=== PATIENT | female | born 1950 | race Caucasian/White ===

== ENCOUNTER → 2017-07-24 | Outpatient (CLI) | payer OTHER ==
[~2017-07-24] MED LIST: NS 100 ML IV 100 ML IV ONE
[2017-07-24 08:53] LABS: CREATININE 0.73 mg/dL (0.55-1.02)
--- NOTE | 2017-07-24 10:39 | CT ---
CT CHEST WITH IV CONTRAST HISTORY: COPD. Pneumonia. Bronchitis. Comparison: None Technique: Multiple axial images of the chest were obtained from the thoracic inlet to the upper abdo men after the administration of IV contrast.Dose reduction techniques including Automated Exposure Co ntrol (AEC) and adjustment of mA and kV were utlized. Findings: The heart is normal in size. No pericardial effusion. No suspicious mediastinal or axillary lymph no ac. Although not optimized to detect pulmonary embolism, no large central pulmonary emboli are seen. Right upper lobe nodule with surrounding ground-glass on series 4, image 27 measuring 2.3 cm. Moderat e emphysema Airways are patent. No suspicious pulmonary nodules or masses. Limited images of the upper abdomen are unremarkable. No aggressive osseous lesions. IMPRESSION: 1. Large right upper lobe nodule that may represent focal infection in the correct clinical setting. Should be noted that malignancy may have a similar appearance and repeat imaging in 3 months after r esolution of acute symptoms would be recommended. Reported By:
== END | disposition home or self-care (01) | DRG 192 ==
LOC: RAD 08:07
PROVIDERS: ATTEND Nurse Practitioner Family
DX: J44.9 Chronic obstructive pulmonary disease, unspecified (principal); J18.0 Bronchopneumonia, unspecified organism; J20.9 Acute bronchitis, unspecified; R91.1 Solitary pulmonary nodule
CPT/HCPCS: 36415; 71260; 82565; 84520; A4222

== ENCOUNTER → 2017-09-07 | Outpatient (CLI) | payer OTHER ==
--- NOTE | 2017-09-07 16:00 | CT ---
CT CHEST WITHOUT IV CONTRAST HISTORY: Lung nodule follow-up Comparison: 07/24/2017 Technique: Multiple axial images of the chest were obtained from the thoracic inlet to the upper abdo men. Dose reduction techniques including Automated Exposure Control (AEC) and adjustment of mA and kV were utlized. Findings: The evaluation of the mediastinal structures is diminished without the use of IV contrast. The heart is normal in size. No pericardial effusion. No suspicious mediastinal or axillary lymph no ac. No focal consolidations, pleural effusions or pneumothorax. Airways are patent. Redemonstration of le ft upper lobe nodule best appreciated on sagittal series 7, image 67 measuring 1.9 x 1.3 cm, previous ly 1.9 x 1.3 cm. This nodule appears to have some sub solid components. Limited images of the upper abdomen are unremarkable. No aggressive osseous lesions. IMPRESSION: 1. Stable solid and sub solid right upper lobe nodule as above. Recommend correlation with more dist ant prior exams if available to confirm stability. Otherwise, CT at 6-12 months to confirm persistenc e, then CT every 2 years until 5 years. http://pubs.[facility].org/doi/abs/[email or web address] Reported By:
== END ==
LOC: RAD 13:57
PROVIDERS: ATTEND Internal Medicine Sleep Medicine
DX: R91.8 Other nonspecific abnormal finding of lung field (principal)
CPT/HCPCS: 71250

== ENCOUNTER 2017-11-26 21:55 | Inpatient (IN) | payer OTHER, MEDICARE ==
[2017-11-27] MEDS ORDERED: DUONEB 0.5 MG/3 MG ONE (02:43)
--- NOTE | 2017-11-27 02:43 | DR.GENAD ---
HPI - PCP Primary Care Physician: mini - Complaint/Symptoms Chief Complaint:: severe chest congestion. Self Treatment fo Chief Complaint: Patient has been taking Prednisone and one biaxin around noon and taken several nebulizer tx - Nurses notes reviewed Nurses Notes Review: Yes - Source History Provided: Patient, Family Member - Mode of Arrival Mode of Arrival: Ambulatory - Timing Onset of Chief Complaint: 11/23/17 Came on: Suddenly - Duration Duration: Constant Duration: Days PMH - PMH Past Medical History: No Past Surgical History: Yes Past Surgical History Comment: lung nodule removal 11-16-17 - Family History History of Family Medical Conditions: No - Social History Does patient currently use any type of tobacco product: No Have you used tobacco products in the last 12 months: No Type of Tobacco Use: None Does any household member use tobacco: No Alcohol Use: None Do you use any recreational Drugs:: No Lives With: Family Lives Where: Home - infectious screening In the last 2 months have you had wt loss of >10#?: NO Have you had fever, night sweats or hemotysis?: No Have you traveled outside the country in the last 6 months?: No Isolation: Standard ROS - Review of Systems Constitutional: Fever, Weakness, Fatigue. negative: Chills Eyes: negative: Eye Pain, Discharge ENTM: Nose Congestion, Throat Pain. negative: Ear Pain, Nose Pain, Nose Discharge Respiratoy: Productive Cough, Short of Breath, Wheezing. negative: Hemoptysis Cardiovascular: Chest Pain Gastrointestinal/Abdominal: No Symptoms Reported. negative: Abdominal Pain, Constipation, Diarrhea, Nausea, Vomiting Genitourinary: No Symptoms Reported. negative: Discharge, Dysuria, Frequency Neurological: Headache, Weakness, Dizziness Musculoskeletal: Back Pain, Muscle Pain, Chest wall Integumentary: negative: Change in Color, Rash, Juandice Hematologic/Lymphatic: Easy Bleeding Endocrine: No Symptoms Reported All Other Systems: Reviewed and Negative PE - Vital Signs Vitals: Temperature 100.1 F Pulse Rate 112 Respiratory Rate 22 Blood Pressure 140/78 O2 Sat by Pulse Oximetry 94 - General Limitations: No Limitations General Appearance: Alert - Head Head Exam: Normal Inspection - Eyes Eye exam: Normal Appearance - ENT ENT Exam: Normal External Ear Exam External Ear Exam: Normal External Inspection TM/Canal Exam: Bilateral Normal Nose Exam: Normal Nose Exam Mouth Exam: Normal Inspection Throat Exam: Normal Inspection - Neck Neck Exam: Normal Inspection - Chest Chest Inspection: Symmetric Chest Wall Rise - Respiratory Respiratory Exam: Accessory Muscle Use, Chest Wall Tenderness, Respiratory Distress Respiratory Exam: Bilateral Wheezing, Bilateral Rales, Bilateral Rhonchi, Upper Wheezing, Upper Rhonchi, Lower Wheezing, Lower Rales, Lower Rhonchi - Cardiovascular Cardiovascular Exam: Regular Rate, Normal Rhythm, Normal Heart Sounds - Abdominal Exam Abdominal Exam: Normal Bowel Sounds, Soft. negative: Tenderness - Extremities Extremities Exam: Normal Inspection - Back Back Exam: Normal Inspection - Neurologic Neurological Exam: Alert, Oriented X3 - Psychiatric Psychiatric Exam: Anxious - Skin Skin Exam: Normal Color MDM - Additional Information Additional Information Obtained From: Family - Differential Diagnosis Differential Diagnosis: PNEUMONIA, [place], CHEST WALL PAIN Course - Treatment Treatment: SEE ORDERS. - Education/Counseling Education/Counseling: Patient, Family, Education Educated On: Diagnosis ROR - Labs Reviewed Laboratory Results Reviewed?: Yes Result Diagrams: 11/27/17 03:00 11/27/17 03:00 Laboratory: WBC 14.0 X10^3/uL (3.6-10.0) H 11/27/17 03:00 RBC 5.10 X10^6/uL (3.5-5.4) 11/27/17 03:00 Hgb 15.9 g/dL (12.0-16.0) 11/27/17 03:00 Hct 45.4 % (36.0-47.0) 11/27/17 03:00 MCV 89.1 fL (80.0-100.0) 11/27/17 03:00 MCH 31.1 pg (27.0-34.0) 11/27/17 03:00 MCHC 34.9 g/dL (33.0-35.0) 11/27/17 03:00 RDW 12.6 % (11.6-16.5) 11/27/17 03:00 Plt Count 438 X10^3/uL (150.0-450.0) 11/27/17 03:00 MPV 8.0 fL (7.4-11.0) 11/27/17 03:00 Neut % 88.9 % (42.0-75.0) H 11/27/17 03:00 Lymph % 6.5 % (21.0-51.0) L 11/27/17 03:00 [place] % 4.6 % (0.0-13.0) 11/27/17 03:00 Eos % 0.0 % (0.9-2.9) L 11/27/17 03:00 Baso % 0 % (0.2-1.0) L 11/27/17 03:00 Neut # 12.4 x10^3/uL (2.2-4.8) H 11/27/17 03:00 Lymph # 0.9 X10^3/uL (1.3-2.9) L 11/27/17 03:00 [place] # 0.6 x10^3/uL (0.3-0.8) 11/27/17 03:00 Eos # 0.0 x10^3/uL (0.0-0.2) 11/27/17 03:00 Baso # 0.0 X10^3/uL (0.0-0.1) 11/27/17 03:00 Absolute Nucleated RBC 0.0 /100WBC 11/27/17 03:00 Sample Site Lbra 11/27/17 04:07 ABG pH 7.470 (7.35-7.45) H 11/27/17 04:07 ABG pCO2 40.0 mmHg (35.0-45.0) 11/27/17 04:07 ABG pO2 54.0 mmHg (80.0-100.0) L 11/27/17 04:07 ABG HCO3 29.1 mmol/L (22-26) H 11/27/17 04:07 ABG O2 Saturation 90.0 % (90-100) 11/27/17 04:07 ABG Base Excess 5.0 mmol/L (-2.0-2.0) H 11/27/17 04:07 Roderick Test Na 11/27/17 04:07 A-a Gradient 46.0 mmHg 11/27/17 04:07 FiO2 21.000 11/27/17 04:07 Blood Gas Comments Abiel abg well-mtf 11/27/17 04:07 Sodium 139 mmol/L (136-145) 11/27/17 03:00 Corrected Sodium 140 mmol/L (136-145) 11/27/17 03:00 Potassium 3.7 mmol/L (3.5-5.1) 11/27/17 03:00 Chloride 101 mmol/L (98-107) 11/27/17 03:00 Carbon Dioxide 27.2 mmol/L (21-32) 11/27/17 03:00 BUN 9 mg/dL (7-18) 11/27/17 03:00 Creatinine 0.63 mg/dL (0.55-1.02) 11/27/17 03:00 Est GFR (MDRD) Af Amer > 60 (>60) 11/27/17 03:00 Est GFR (MDRD) Non-Af > 60 (>60) 11/27/17 03:00 Glucose 129 mg/dL (65-99) H 11/27/17 03:00 Calcium 9.5 mg/dL (8.5-10.1) 11/27/17 03:00 Corrected Calcium TNP 11/27/17 03:00 Total Bilirubin 0.40 mg/dL (0.2-1.0) 11/27/17 03:00 AST 16 Units/L (15-37) 11/27/17 03:00 ALT 24 Units/L (12-78) 11/27/17 03:00 Alkaline Phosphatase 110 Units/L (46-116) 11/27/17 03:00 Creatine Kinase 55 Units/L (26-192) 11/27/17 03:00 CK-MB (CK-2) 1.2 ng/mL (0-4.0) 11/27/17 03:00 CK/CKMB % Calc 2.2 % (<4) 11/27/17 03:00 Troponin I < 0.02 ng/mL (0-1.5) 11/27/17 03:00 Total Protein 8.2 g/dL (6.4-8.2) 11/27/17 03:00 Albumin 3.8 g/dL (3.4-5.0) 11/27/17 03:00 Globulin 4.4 g/dL (2.5-4.5) 11/27/17 03:00 Albumin/Globulin Ratio 0.9 Ratio (1.1-2.1) L 11/27/17 03:00 Influenza Type A (PCR) Positive (NEGATIVE) A 11/27/17 02:05 Influenza Type B (PCR) Negative (NEGATIVE) 11/27/17 02:05 - XRAY XRAY Interpreted by: Radiologist - EKG Rhythm: NSR - Discharge Plan Condition: Stable - Follow ups/Referrals Follow ups/Referrals: CARLOS RODAS [Primary Care Provider] - 3 days - Instructions Instructions: Influenza, Adult, [id number]
[2017-11-27] MEDS ORDERED: SOLU-Medrol 125 MG VIAL ONE (02:46)
[2017-11-27] MEDS ORDERED: DUONEB 0.5 MG/3 MG NEB ONE (02:57)
[2017-11-27] MEDS ORDERED: SOLU-Medrol 125 MG VIAL IVP ONE (02:57)
[2017-11-27 03:17] LABS: BASOPHILS % (AUTO) 0 % (0.2-1.0); HEMATOCRIT 45.4 % (36.0-47.0); HEMOGLOBIN 15.9 g/dL (12.0-16.0); LYMPHOCYTES # (AUTO) 0.9 X10^3/uL (1.3-2.9); LYMPHOCYTES % (AUTO) 6.5 % (21.0-51.0); MEAN CORPUSCULAR HEMOGLOBIN 31.1 pg (27.0-34.0); MEAN CORPUSCULAR HGB CONC 34.9 g/dL (33.0-35.0); MEAN CORPUSCULAR VOLUME 89.1 fL (80.0-100.0); MONOCYTES # (AUTO) 0.6 x10^3/uL (0.3-0.8); MONOCYTES % (AUTO) 4.6 % (0.0-13.0); NEUTROPHILS # (AUTO) 12.4 x10^3/uL (2.2-4.8); NEUTROPHILS % (AUTO) 88.9 % (42.0-75.0); PLATELET COUNT 438 X10^3/uL (150.0-450.0); RED CELL DISTRIBUTION WIDTH 12.6 % (11.6-16.5)
[2017-11-27 03:29] LABS: BLOOD UREA NITROGEN 9 mg/dL (7-18); CALCIUM 9.5 mg/dL (8.5-10.1); CARBON DIOXIDE 27.2 mmol/L (21-32); CHLORIDE 101 mmol/L (98-107); COR NA(FOR HYPERGLY) 140 mmol/L (136-145); CREATININE 0.63 mg/dL (0.55-1.02); SODIUM 139 mmol/L (136-145); TROPONIN I < 0.02 ng/mL (0-1.5); eGFR BLACK RACES > 60 (>60); eGFR NON BLACK RACES > 60 (>60)
[2017-11-27 03:33] LABS: ALANINE AMINOTRANSFERASE 24 Units/L (12-78); ALBUMIN 3.8 g/dL (3.4-5.0); ALKALINE PHOSPHATASE 110 Units/L (46-116); ASPARTATE AMINO TRANSFERASE 16 Units/L (15-37); CKMB % 2.2 % (<4); CREATINE KINASE 55 Units/L (26-192); CREATINE KINASE MB 1.2 ng/mL (0-4.0); TOTAL PROTEIN 8.2 g/dL (6.4-8.2)
[2017-11-27] MEDS ORDERED: ROCEPHIN VIAL 1 GM ONE (04:08)
[2017-11-27] MEDS ORDERED: ROCEPHIN VIAL 1 GM 1 GM in NS 100 ML IV + SPIKE MINIBAG* 100 ML IV ONE (04:09)
--- NOTE | 2017-11-27 04:24 | RAD ---
Chest, two views Indication: Shortness of breath, congestion Comparison: 07/07/2016 Findings: Heart size is normal. Radiopaque sutures are present within the right upper lobe, suggestiv e for partial lobectomy. No focal consolidation, significant effusion or pneumothorax is identified. There is no acute osseous abnormality. Impression: No acute cardiopulmonary abnormality. Reported By:
[2017-11-27 04:26] LABS: ABG HCO3 29.1 mmol/L (22-26)
[2017-11-27] MEDS: TAMIFLU PO SCH ×3 (05:04→20:55)
[2017-11-27 05:45] LABS: LACTIC ACID 1.2 mmol/L (0.4-2.0)
[2017-11-27] MEDS: NS 1000 ML 1,000 ML IV SCH ×3 (08:57→18:51)
[2017-11-27] MEDS ORDERED: VIBRAMYCIN 100 MG in D5W 250 ML IV 250 ML IV SCH (09:00)
[2017-11-27 09:13] LABS: CKMB % 2.2 % (<4); CREATINE KINASE 51 Units/L (26-192); CREATINE KINASE MB 1.1 ng/mL (0-4.0); TROPONIN I < 0.02 ng/mL (0-1.5)
[2017-11-27] MEDS: LEVAQUIN PREMIX IV 750 MG 750 MG/150 ML BAG IV SCH (10:04)
[2017-11-27] MEDS: DUONEB 0.5 MG/3 MG NEB SCH ×4 (12:00→20:51)
--- NOTE | 2017-11-27 13:24 | DR.H&P ---
H&P - History & Physical for Day of: H&P Date: 11/27/17 - Chief Complaint Chief Complaint: cough, fever, sob - Allergies Allergies/Adverse Reactions: Allergies Allergy/AdvReac Type Severity Reaction Status Date / Time No Known Drug Allergies Allergy Verified 11/27/17 04:57 - History of Present Illness History of Present Illness: patient is a 67-year-old white female who was an ER admission after presenting with complaints of flulike illness for 2-3 days prior to admission. Patient states she became very tight in her chest felt like she could not get any breath. Patient was recently diagnosed with lung carcinoma and status post right lung surgery. Patient otherwise has a negative past medical history. Patient tested positive for influenza A in the ER was started on Tamiflu patient admitted for further evaluation of respiratory illness administering IV antibiotics as well as respiratory therapy. - Past Medical History Additional Medical History: lung cancer - Past Surgical History Additional Surgical History: right upper partial lung lobe removal - Family History Family Medical History: Coronary Artery Disease, Hypertension - Social History Does patient currently use any type of tobacco product: No Have you used tobacco products in the last 12 months: No Type of Tobacco Use: None Does any household member use tobacco: No Alcohol Use: None Drug Use: None - Medications Home Medications: Montelukast Sodium [Singulair Tab 10 mg] 10 mg PO HS 11/27/17 [History Confirmed 11/27/17] - Review of Systems Constitutional: Fever, Chills, Weakness Eyes: No Symptoms Reported ENT: No Symptoms Reported Respiratory: Cough, Shortness of Breath, Wheezing Cardiovascular: No Symptoms Reported Gastrointestinal: No Symptoms Reported Genitourinary: No Symptoms Reported Musculoskeletal: No Symptoms Reported Skin: No Symptoms Reported Neurological: No Symptoms Reported - Physical Exam Vital Signs: Temperature 98.1 F Pulse Rate [Left Brachial] 110 Pulse Rate 112 Respiratory Rate 22 Blood Pressure [Left Arm] 168/81 Blood Pressure 140/78 O2 Sat by Pulse Oximetry 93 Oriented: Normal Eyes: Normal Ear: Normal Nose: Normal Throat: Normal Respiratory: Diminished Throughout Cardiovascular: Tachycardia : Normal Auscultation: Bowel Sounds: Normal Palpation: Normal Tenderness: Normal Skin: Normal Musculoskeletal: Normal Psychiatric: Anxiety Affect: Anxious Speech Pattern: Clear, Appropriate - Assessment/Plan (1) Acute bronchitis Status: Acute Plan: admit, tamiflu, iv atbx, resp therapy and supplemental o2. blood and sputum cultures. am labs, resume home meds. contact precautions, gentle iv hydration (2) Influenza A Status: Acute (3) Carcinoma, lung Status: Acute
[2017-11-27 15:19] LABS: CKMB % 2.3 % (<4); CREATINE KINASE 52 Units/L (26-192); CREATINE KINASE MB 1.2 ng/mL (0-4.0); TROPONIN I < 0.02 ng/mL (0-1.5)
[2017-11-27] MEDS: SINGULAIR TAB 10 MG PO SCH (20:55)
[2017-11-28] MEDS: DUONEB 0.5 MG/3 MG NEB SCH ×6 (01:07→20:11)
[2017-11-28] MEDS: NS 1000 ML 1,000 ML IV SCH ×3 (01:45→17:28)
[2017-11-28 06:11] LABS: BASOPHILS % (AUTO) 0.1 % (0.2-1.0); EOSINOPHILS % (AUTO) 0.1 % (0.9-2.9); HEMATOCRIT 39.3 % (36.0-47.0); HEMOGLOBIN 13.7 g/dL (12.0-16.0); LYMPHOCYTES # (AUTO) 1.8 X10^3/uL (1.3-2.9); LYMPHOCYTES % (AUTO) 15.7 % (21.0-51.0); MEAN CORPUSCULAR HGB CONC 34.8 g/dL (33.0-35.0); MEAN CORPUSCULAR VOLUME 89.1 fL (80.0-100.0); MEAN PLATELET VOLUME 7.9 fL (7.4-11.0); MONOCYTES # (AUTO) 1.2 x10^3/uL (0.3-0.8); MONOCYTES % (AUTO) 10.3 % (0.0-13.0); NEUTROPHILS # (AUTO) 8.4 x10^3/uL (2.2-4.8); NEUTROPHILS % (AUTO) 73.8 % (42.0-75.0); PLATELET COUNT 328 X10^3/uL (150.0-450.0); RED BLOOD COUNT 4.42 X10^6/uL (3.5-5.4); RED CELL DISTRIBUTION WIDTH 12.7 % (11.6-16.5); WHITE BLOOD COUNT 11.3 X10^3/uL (3.6-10.0)
[2017-11-28 06:37] LABS: ALANINE AMINOTRANSFERASE 14 Units/L (12-78); ALBUMIN 2.8 g/dL (3.4-5.0); ALKALINE PHOSPHATASE 82 Units/L (46-116); ASPARTATE AMINO TRANSFERASE 17 Units/L (15-37); BLOOD UREA NITROGEN 12 mg/dL (7-18); CALCIUM 8.4 mg/dL (8.5-10.1); CHLORIDE 106 mmol/L (98-107); COR CA(FOR HYPOALB) 9.4 mg/dL (8.5-10.1); MAGNESIUM 1.9 mg/dL (1.7-2.9); SODIUM 141 mmol/L (136-145); TOTAL PROTEIN 6.2 g/dL (6.4-8.2); eGFR BLACK RACES > 60 (>60); eGFR NON BLACK RACES > 60 (>60)
[2017-11-28] MEDS ORDERED: POTASSIUM CHL 60 MEQ/NS 0.45% 500 ML IV PRN (07:05)
[2017-11-28] MEDS ORDERED: MAG-OX TAB PO PRN (07:05)
[2017-11-28] MEDS ORDERED: K-LYTE EFFERVESCENT PO PRN (07:05)
[2017-11-28] MEDS ORDERED: MAGNESIUM SULFATE 1 GM/100 mL PREMIX 1 GM/100 ML BAG IV PRN (07:05)
[2017-11-28] MEDS ORDERED: POTASSIUM CHLORIDE LIQ 20 MEQ UDC PO PRN (07:05)
[2017-11-28] MEDS ORDERED: POTASSIUM CHL 40 MEQ/NS 0.45% 500 ML IV PRN (07:05)
[2017-11-28] MEDS ORDERED: K-RIDER 10 MEQ/NS 100 ML 10 MEQ/100 ML BAG IV PRN (07:05)
[2017-11-28] MEDS: SOLU-Medrol 40 MG VIAL IVP SCH ×2 (09:07→17:28)
[2017-11-28] MEDS: TAMIFLU PO SCH ×2 (09:07→20:04)
[2017-11-28] MEDS: LEVAQUIN PREMIX IV 750 MG 750 MG/150 ML BAG IV SCH (09:07)
[2017-11-28] MEDS ORDERED: TUSSIONEX PENNKINETIC SUSP PO PRN (13:16)
--- NOTE | 2017-11-28 13:20 | PCM.PROG ---
Progress Note - Progress Note for Day of Date: 11/28/17 - Subjective Subjective: 67-year-old white female admitted 1 day ago with influenza and bronchitis. Patient has been receiving IV antibiotics as well as respiratory therapy and IV steroids. Patient does have some improvement this morning. She states she feels a little bit better. Patient has diffuse rhonchi on exam with scant productive cough. Patient denies any nausea or vomiting this morning. Plan to add Pulmicort, Robitussin-DM continue to encourage by mouth intake of water, pulmonary toileting and repeat a.m. labs and chest x-ray. - Past Medical Family Social History Past Med/Fam/Surg Hx: No changes since H&P Allergies: Allergies No Known Drug Allergies Allergy (Verified 11/27/17 04:57) - Review of Systems ROS: No change since H&P - Vital Signs and I&O's Vital Signs: Temperature 98.3 F Pulse Rate [Left Brachial] 92 Pulse Rate 93 Respiratory Rate 20 Blood Pressure [Left Arm] 141/84 Blood Pressure 140/78 O2 Sat by Pulse Oximetry 96 Intake and Output: Intake & Output 11/26/17 11/27/17 11/28/17 11/29/17 11:59 11:59 11:59 11:59 Intake Total 6180 Balance 6180 - Physical Exam Oriented: Normal Eyes: Normal Ear: Normal Nose: Normal Throat: Normal Respiratory: Rhonchi Cardiovascular: Tachycardia : Normal Auscultation: Bowel Sounds: Normal Tenderness: Normal Skin: Normal Musculoskeletal: Normal Psychiatric: Anxiety Affect: Anxious Speech Pattern: Clear, Appropriate - Laboratory and Diagnostics Result Diagrams: 11/28/17 05:30 11/28/17 05:30 Labs: Laboratory WBC 11.3 X10^3/uL (3.6-10.0) H 11/28/17 05:30 RBC 4.42 X10^6/uL (3.5-5.4) 11/28/17 05:30 Hgb 13.7 g/dL (12.0-16.0) D 11/28/17 05:30 Hct 39.3 % (36.0-47.0) 11/28/17 05:30 MCV 89.1 fL (80.0-100.0) 11/28/17 05:30 MCH 31.0 pg (27.0-34.0) 11/28/17 05:30 MCHC 34.8 g/dL (33.0-35.0) 11/28/17 05:30 RDW 12.7 % (11.6-16.5) 11/28/17 05:30 Plt Count 328 X10^3/uL (150.0-450.0) 11/28/17 05:30 MPV 7.9 fL (7.4-11.0) 11/28/17 05:30 Neut % 73.8 % (42.0-75.0) 11/28/17 05:30 Lymph % 15.7 % (21.0-51.0) L 11/28/17 05:30 [place] % 10.3 % (0.0-13.0) 11/28/17 05:30 Eos % 0.1 % (0.9-2.9) L 11/28/17 05:30 Baso % 0.1 % (0.2-1.0) L 11/28/17 05:30 Neut # 8.4 x10^3/uL (2.2-4.8) H 11/28/17 05:30 Lymph # 1.8 X10^3/uL (1.3-2.9) 11/28/17 05:30 [place] # 1.2 x10^3/uL (0.3-0.8) H 11/28/17 05:30 Eos # 0.0 x10^3/uL (0.0-0.2) 11/28/17 05:30 Baso # 0.0 X10^3/uL (0.0-0.1) 11/28/17 05:30 Absolute Nucleated RBC 0.0 /100WBC 11/28/17 05:30 Sample Site Lbra 11/27/17 04:07 ABG pH 7.470 (7.35-7.45) H 11/27/17 04:07 ABG pCO2 40.0 mmHg (35.0-45.0) 11/27/17 04:07 ABG pO2 54.0 mmHg (80.0-100.0) L 11/27/17 04:07 ABG HCO3 29.1 mmol/L (22-26) H 11/27/17 04:07 ABG O2 Saturation 90.0 % (90-100) 11/27/17 04:07 ABG Base Excess 5.0 mmol/L (-2.0-2.0) H 11/27/17 04:07 Roderick Test Na 11/27/17 04:07 A-a Gradient 46.0 mmHg 11/27/17 04:07 FiO2 21.000 11/27/17 04:07 Blood Gas Comments Abiel abg well-mtf 11/27/17 04:07 Sodium 141 mmol/L (136-145) 11/28/17 05:30 Corrected Sodium TNP 11/28/17 05:30 Potassium 3.3 mmol/L (3.5-5.1) L 11/28/17 05:30 Chloride 106 mmol/L (98-107) 11/28/17 05:30 Carbon Dioxide 28.0 mmol/L (21-32) 11/28/17 05:30 BUN 12 mg/dL (7-18) 11/28/17 05:30 Creatinine 0.50 mg/dL (0.55-1.02) L 11/28/17 05:30 Est GFR (MDRD) Af Amer > 60 (>60) 11/28/17 05:30 Est GFR (MDRD) Non-Af > 60 (>60) 11/28/17 05:30 Glucose 81 mg/dL (65-99) 11/28/17 05:30 Lactic Acid 1.2 mmol/L (0.4-2.0) 11/27/17 05:20 Calcium 8.4 mg/dL (8.5-10.1) L 11/28/17 05:30 Corrected Calcium 9.4 mg/dL (8.5-10.1) 11/28/17 05:30 Magnesium 1.9 mg/dL (1.7-2.9) 11/28/17 05:30 Total Bilirubin 0.20 mg/dL (0.2-1.0) 11/28/17 05:30 AST 17 Units/L (15-37) 11/28/17 05:30 ALT 14 Units/L (12-78) 11/28/17 05:30 Alkaline Phosphatase 82 Units/L (46-116) 11/28/17 05:30 Creatine Kinase 52 Units/L (26-192) 11/27/17 14:50 CK-MB (CK-2) 1.2 ng/mL (0-4.0) 11/27/17 14:50 CK/CKMB % Calc 2.3 % (<4) 11/27/17 14:50 Troponin I < 0.02 ng/mL (0-1.5) 11/27/17 14:50 C-Reactive Protein 13.00 mg/L (0-3.0) H 11/27/17 05:20 Total Protein 6.2 g/dL (6.4-8.2) L 11/28/17 05:30 Albumin 2.8 g/dL (3.4-5.0) L 11/28/17 05:30 Globulin 3.4 g/dL (2.5-4.5) 11/28/17 05:30 Albumin/Globulin Ratio 0.8 Ratio (1.1-2.1) L 11/28/17 05:30 Influenza Type A (PCR) Positive (NEGATIVE) A 11/27/17 02:05 Influenza Type B (PCR) Negative (NEGATIVE) 11/27/17 02:05 - Plan (1) Acute bronchitis Status: Acute Plan: tamiflu, iv atbx, resp therapy and supplemental o2. blood and sputum cultures. Plan to add Pulmicort, Robitussin-DM continue to encourage by mouth intake of water, pulmonary toileting and repeat a.m. labs and chest x-ray. contact precautions, gentle iv hydration (2) Influenza A Status: Acute (3) Carcinoma, lung Status: Acute
[2017-11-28] MEDS: ROBITUSSIN DM PO SCH ×2 (17:28→20:06)
[2017-11-28] MEDS: SINGULAIR TAB 10 MG PO SCH (20:04)
[2017-11-28] MEDS: PULMICORT NEB TX 0.5 MG NEB SCH (20:12)
[2017-11-29] MEDS: NS 1000 ML 1,000 ML IV SCH ×3 (01:27→17:17)
[2017-11-29] MEDS: SOLU-Medrol 40 MG VIAL IVP SCH ×3 (01:34→17:17)
[2017-11-29] MEDS: DUONEB 0.5 MG/3 MG NEB SCH ×6 (01:53→21:09)
[2017-11-29 05:40] LABS: BASOPHILS % (AUTO) 0.1 % (0.2-1.0); HEMATOCRIT 40.7 % (36.0-47.0); HEMOGLOBIN 14.1 g/dL (12.0-16.0); LYMPHOCYTES # (AUTO) 0.8 X10^3/uL (1.3-2.9); LYMPHOCYTES % (AUTO) 10.4 % (21.0-51.0); MEAN CORPUSCULAR HEMOGLOBIN 31.1 pg (27.0-34.0); MEAN CORPUSCULAR HGB CONC 34.7 g/dL (33.0-35.0); MEAN CORPUSCULAR VOLUME 89.5 fL (80.0-100.0); MEAN PLATELET VOLUME 7.7 fL (7.4-11.0); MONOCYTES # (AUTO) 0.2 x10^3/uL (0.3-0.8); MONOCYTES % (AUTO) 3.2 % (0.0-13.0); NEUTROPHILS # (AUTO) 6.6 x10^3/uL (2.2-4.8); NEUTROPHILS % (AUTO) 86.3 % (42.0-75.0); PLATELET COUNT 313 X10^3/uL (150.0-450.0); RED BLOOD COUNT 4.55 X10^6/uL (3.5-5.4); RED CELL DISTRIBUTION WIDTH 12.7 % (11.6-16.5); WHITE BLOOD COUNT 7.6 X10^3/uL (3.6-10.0)
[2017-11-29 05:52] LABS: ALANINE AMINOTRANSFERASE 20 Units/L (12-78); ALBUMIN 2.9 g/dL (3.4-5.0); ALKALINE PHOSPHATASE 91 Units/L (46-116); ASPARTATE AMINO TRANSFERASE 14 Units/L (15-37); BLOOD UREA NITROGEN 8 mg/dL (7-18); CALCIUM 8.8 mg/dL (8.5-10.1); CHLORIDE 103 mmol/L (98-107); COR CA(FOR HYPOALB) 9.7 mg/dL (8.5-10.1); COR NA(FOR HYPERGLY) 139 mmol/L (136-145); CREATININE 0.41 mg/dL (0.55-1.02); SODIUM 138 mmol/L (136-145); TOTAL PROTEIN 6.5 g/dL (6.4-8.2); eGFR BLACK RACES > 60 (>60); eGFR NON BLACK RACES > 60 (>60)
[2017-11-29 08:07] VITALS: BMI 22.4
--- NOTE | 2017-11-29 08:19 | RAD ---
HISTORY: Shortness of breath, congestion Study: Single-view of the chest Comparison: November 27, 2017 Findings: The patient is slightly rotated. Interstitial changes and mild bronchial thickening are again noted s imilar to prior exam. Otherwise no evidence of focal consolidation is identified. Mild blunting of th e left costophrenic angle is again noted suggesting pleural thickening and/or small effusion similar to prior study. IMPRESSION: Interstitial changes and mild bronchial wall thickening with mild blunting of the left costophrenic a ngle. No overall significant change is appreciated. Reported By:
[2017-11-29] MEDS: PULMICORT NEB TX 0.5 MG NEB SCH ×2 (08:59→21:09)
[2017-11-29] MEDS: LEVAQUIN PREMIX IV 750 MG 750 MG/150 ML BAG IV SCH (09:41)
[2017-11-29] MEDS: ROBITUSSIN DM PO SCH ×4 (09:41→21:09)
[2017-11-29] MEDS: TAMIFLU PO SCH ×2 (09:42→21:09)
--- NOTE | 2017-11-29 12:52 | PCM.PROG ---
Progress Note - Progress Note for Day of Date: 11/29/17 - Subjective Subjective: 67-year-old white female admitted 1 day ago with influenza and bronchitis. Patient has been receiving IV antibiotics as well as respiratory therapy and IV steroids. Patient does have some improvement this morning. She states she feels a little bit better. Patient has diffuse rhonchi on exam with scant productive cough. Patient denies any nausea or vomiting this morning. Continue Pulmicort, Robitussin-DM continue to encourage by mouth intake of water , pulmonary toileting and repeat a.m. labs. smart vest and mucomyst - Past Medical Family Social History Past Med/Fam/Surg Hx: No changes since H&P Allergies: Allergies No Known Drug Allergies Allergy (Verified 11/27/17 04:57) - Review of Systems ROS: No change since H&P - Vital Signs and I&O's Vital Signs: Temperature 97.7 F Pulse Rate [Left Brachial] 117 Pulse Rate 98 Respiratory Rate 20 Blood Pressure [Left Arm] 145/86 Blood Pressure 140/78 O2 Sat by Pulse Oximetry 94 Intake and Output: Intake & Output 11/27/17 11/28/17 11/29/17 11/30/17 11:59 11:59 11:59 11:59 Intake Total 6180 6020 Balance 6180 6020 - Physical Exam Oriented: Normal Eyes: Normal Ear: Normal Nose: Normal Throat: Normal Respiratory: Rhonchi Cardiovascular: Tachycardia : Normal Auscultation: Bowel Sounds: Normal Tenderness: Normal Skin: Normal Musculoskeletal: Normal Psychiatric: Anxiety Affect: Anxious Speech Pattern: Clear, Appropriate - Laboratory and Diagnostics Result Diagrams: 11/29/17 05:15 11/29/17 05:15 Labs: 11/27/17 03:00 Blood Blood Culture - Preliminary 11/27/17 02:45 Blood Blood Culture - Preliminary Laboratory WBC 7.6 X10^3/uL (3.6-10.0) 11/29/17 05:15 RBC 4.55 X10^6/uL (3.5-5.4) 11/29/17 05:15 Hgb 14.1 g/dL (12.0-16.0) 11/29/17 05:15 Hct 40.7 % (36.0-47.0) 11/29/17 05:15 MCV 89.5 fL (80.0-100.0) 11/29/17 05:15 MCH 31.1 pg (27.0-34.0) 11/29/17 05:15 MCHC 34.7 g/dL (33.0-35.0) 11/29/17 05:15 RDW 12.7 % (11.6-16.5) 11/29/17 05:15 Plt Count 313 X10^3/uL (150.0-450.0) 11/29/17 05:15 MPV 7.7 fL (7.4-11.0) 11/29/17 05:15 Neut % 86.3 % (42.0-75.0) H 11/29/17 05:15 Lymph % 10.4 % (21.0-51.0) L 11/29/17 05:15 [place] % 3.2 % (0.0-13.0) 11/29/17 05:15 Eos % 0.0 % (0.9-2.9) L 11/29/17 05:15 Baso % 0.1 % (0.2-1.0) L 11/29/17 05:15 Neut # 6.6 x10^3/uL (2.2-4.8) H 11/29/17 05:15 Lymph # 0.8 X10^3/uL (1.3-2.9) L 11/29/17 05:15 [place] # 0.2 x10^3/uL (0.3-0.8) L 11/29/17 05:15 Eos # 0.0 x10^3/uL (0.0-0.2) 11/29/17 05:15 Baso # 0.0 X10^3/uL (0.0-0.1) 11/29/17 05:15 Absolute Nucleated RBC 0.0 /100WBC 11/29/17 05:15 Sample Site Lbra 11/27/17 04:07 ABG pH 7.470 (7.35-7.45) H 11/27/17 04:07 ABG pCO2 40.0 mmHg (35.0-45.0) 11/27/17 04:07 ABG pO2 54.0 mmHg (80.0-100.0) L 11/27/17 04:07 ABG HCO3 29.1 mmol/L (22-26) H 11/27/17 04:07 ABG O2 Saturation 90.0 % (90-100) 11/27/17 04:07 ABG Base Excess 5.0 mmol/L (-2.0-2.0) H 11/27/17 04:07 Roderick Test Na 11/27/17 04:07 A-a Gradient 46.0 mmHg 11/27/17 04:07 FiO2 21.000 11/27/17 04:07 Blood Gas Comments Abiel abg well-mtf 11/27/17 04:07 Sodium 138 mmol/L (136-145) 11/29/17 05:15 Corrected Sodium 139 mmol/L (136-145) 11/29/17 05:15 Potassium 3.5 mmol/L (3.5-5.1) 11/29/17 05:15 Chloride 103 mmol/L (98-107) 11/29/17 05:15 Carbon Dioxide 27.0 mmol/L (21-32) 11/29/17 05:15 BUN 8 mg/dL (7-18) 11/29/17 05:15 Creatinine 0.41 mg/dL (0.55-1.02) L 11/29/17 05:15 Est GFR (MDRD) Af Amer > 60 (>60) 11/29/17 05:15 Est GFR (MDRD) Non-Af > 60 (>60) 11/29/17 05:15 Glucose 151 mg/dL (65-99) H 11/29/17 05:15 Lactic Acid 1.2 mmol/L (0.4-2.0) 11/27/17 05:20 Calcium 8.8 mg/dL (8.5-10.1) 11/29/17 05:15 Corrected Calcium 9.7 mg/dL (8.5-10.1) 11/29/17 05:15 Magnesium 1.9 mg/dL (1.7-2.9) 11/28/17 05:30 Total Bilirubin 0.40 mg/dL (0.2-1.0) 11/29/17 05:15 AST 14 Units/L (15-37) L 11/29/17 05:15 ALT 20 Units/L (12-78) 11/29/17 05:15 Alkaline Phosphatase 91 Units/L (46-116) 11/29/17 05:15 Creatine Kinase 52 Units/L (26-192) 11/27/17 14:50 CK-MB (CK-2) 1.2 ng/mL (0-4.0) 11/27/17 14:50 CK/CKMB % Calc 2.3 % (<4) 11/27/17 14:50 Troponin I < 0.02 ng/mL (0-1.5) 11/27/17 14:50 C-Reactive Protein 13.00 mg/L (0-3.0) H 11/27/17 05:20 Total Protein 6.5 g/dL (6.4-8.2) 11/29/17 05:15 Albumin 2.9 g/dL (3.4-5.0) L 11/29/17 05:15 Globulin 3.6 g/dL (2.5-4.5) 11/29/17 05:15 Albumin/Globulin Ratio 0.8 Ratio (1.1-2.1) L 11/29/17 05:15 Influenza Type A (PCR) Positive (NEGATIVE) A 11/27/17 02:05 Influenza Type B (PCR) Negative (NEGATIVE) 11/27/17 02:05 - Plan (1) Acute bronchitis Status: Acute Plan: tamiflu, iv atbx, resp therapy and supplemental o2. blood and sputum cultures. Continue Pulmicort, Robitussin-DM continue to encourage by mouth intake of water, pulmonary toileting and repeat a.m. labs and chest x-ray. contact precautions, gentle iv hydration (2) Influenza A Status: Acute (3) Carcinoma, lung Status: Acute
[2017-11-29] MEDS: ECOTRIN TAB 325 MG PO SCH (14:47)
[2017-11-29] MEDS: SINGULAIR TAB 10 MG PO SCH (21:09)
[2017-11-30] MEDS: DUONEB 0.5 MG/3 MG NEB SCH ×3 (01:24→09:33)
[2017-11-30] MEDS: NS 1000 ML 1,000 ML IV SCH ×3 (01:46→09:50)
[2017-11-30] MEDS: SOLU-Medrol 40 MG VIAL IVP SCH ×3 (01:47→16:35)
[2017-11-30 05:43] LABS: BASOPHILS % (AUTO) 0.1 % (0.2-1.0); HEMATOCRIT 39.9 % (36.0-47.0); HEMOGLOBIN 13.8 g/dL (12.0-16.0); LYMPHOCYTES # (AUTO) 0.8 X10^3/uL (1.3-2.9); LYMPHOCYTES % (AUTO) 8.8 % (21.0-51.0); MEAN CORPUSCULAR HEMOGLOBIN 30.9 pg (27.0-34.0); MEAN CORPUSCULAR HGB CONC 34.6 g/dL (33.0-35.0); MEAN CORPUSCULAR VOLUME 89.3 fL (80.0-100.0); MEAN PLATELET VOLUME 7.9 fL (7.4-11.0); MONOCYTES # (AUTO) 0.5 x10^3/uL (0.3-0.8); MONOCYTES % (AUTO) 5.6 % (0.0-13.0); NEUTROPHILS # (AUTO) 7.9 x10^3/uL (2.2-4.8); NEUTROPHILS % (AUTO) 85.5 % (42.0-75.0); PLATELET COUNT 302 X10^3/uL (150.0-450.0); RED BLOOD COUNT 4.47 X10^6/uL (3.5-5.4); RED CELL DISTRIBUTION WIDTH 12.8 % (11.6-16.5); WHITE BLOOD COUNT 9.3 X10^3/uL (3.6-10.0)
[2017-11-30 06:11] LABS: ALANINE AMINOTRANSFERASE 18 Units/L (12-78); ALBUMIN 2.8 g/dL (3.4-5.0); ALKALINE PHOSPHATASE 85 Units/L (46-116); ASPARTATE AMINO TRANSFERASE 11 Units/L (15-37); BLOOD UREA NITROGEN 8 mg/dL (7-18); CALCIUM 8.6 mg/dL (8.5-10.1); CARBON DIOXIDE 27.9 mmol/L (21-32); CHLORIDE 105 mmol/L (98-107); COR CA(FOR HYPOALB) 9.6 mg/dL (8.5-10.1); COR NA(FOR HYPERGLY) 142 mmol/L (136-145); CREATININE 0.45 mg/dL (0.55-1.02); SODIUM 141 mmol/L (136-145); TOTAL PROTEIN 6.2 g/dL (6.4-8.2); eGFR BLACK RACES > 60 (>60); eGFR NON BLACK RACES > 60 (>60)
[2017-11-30] MEDS: PULMICORT NEB TX 0.5 MG NEB SCH (09:33)
[2017-11-30] MEDS: TAMIFLU PO SCH (09:42)
[2017-11-30] MEDS: LEVAQUIN PREMIX IV 750 MG 750 MG/150 ML BAG IV SCH (09:42)
[2017-11-30] MEDS: ECOTRIN TAB 325 MG PO SCH (09:42)
[2017-11-30] MEDS: ROBITUSSIN DM PO SCH ×3 (09:43→16:34)
[2017-11-30 16:17] VITALS: BP 172/87
== END 2017-11-30 16:40 | disposition home or self-care (01) | DRG 194 ==
LOC: ER 21:55 → MED/SURG 11-27 08:25
PROVIDERS: ADMIT Internal Medicine; ATTEND Internal Medicine
DX: J10.1 Influenza due to other identified influenza virus with other respiratory manifestations (principal); J44.1 Chronic obstructive pulmonary disease with (acute) exacerbation; C34.90 Malignant neoplasm of unspecified part of unspecified bronchus or lung; J20.8 Acute bronchitis due to other specified organisms; R06.02 Shortness of breath; R94.31 Abnormal electrocardiogram [ECG] [EKG]; Z90.2 Acquired absence of lung [part of]; R09.02 Hypoxemia
CPT/HCPCS: 36415; 36600; 71045; 71046; 80053; 82550; 82553; 82803; 83605; 83735; 84132; 84484; 85025; 86140; 87040; 87502; 93005; 93010; 94640; 94760; 96374; 96375; 99284; A4222; G9035; J0696; J1956; J2920; J2930; J3490; J7620; J7626

== ENCOUNTER 2019-02-08 10:41 | Inpatient (IN) ==
[2019-02-08 10:57] VITALS: BMI 22.6
[2019-02-08] MEDS ORDERED: DUONEB 0.5 MG/3 MG ONE ×2 (11:01→12:04)
[2019-02-08] MEDS ORDERED: DUONEB 0.5 MG/3 MG NEB ONE ×2 (11:01→12:03)
--- NOTE | 2019-02-08 11:06 | DR.URIAD ---
HPI Time Seen Time Seen by Provider: 02/08/19 11:06 PCP Primary Care Physician: seema pink HPI Comment HPI Comment: PATIENT IS 68YR OLD FEMALE IN ED WITH SOB AND COUGH THAT IS GETTING WORSE. NO FEVER. Complaint Chief Complaint Doctors Comments: SOB AND COUGHING TIMES ONE DAY. Chief Complaint:: pt stated she started getting short of breath yesterday and coughing. Reviewed Nurses Notes Reviewed: Yes Source History Provided: Patient Mode of Arrival Mode of Arrival: Ambulatory Timing Onset of Chief Complaint: 02/07/19 Context Recent Treated Infections: None History of Respiratory: Asthma Quality Quality of Cough: Productive and Yellow Rhinorrhea: Clear Shortness of Breath: Moderate Associated Signs and Symptoms Other Signs and Symptoms: Cough, Shortness of Breath, URI and Wheeze Other History Other History: ASTHMA PMH PMH Past Medical History: Yes Past Medical History: Asthma and COPD Past Surgical History: Yes Surgical History: Other Past Surgical History Comment: upper right lung removed Family History History of Family Medical Conditions: No Family Medical History: Coronary Artery Disease and Hypertension Social History Does patient currently use any type of tobacco product: No Have you used tobacco products in the last 12 months: No Type of Tobacco Use: None Does any household member use tobacco: No Alcohol Use: Rarely Do you use any recreational Drugs:: No Lives With: Family Lives Where: Home infectious screening In the last 2 months have you had wt loss of >10#?: NO Have you had fever, night sweats or hemotysis?: No Have you traveled outside the country in the last 6 months?: No Isolation: Standard ROS Review of Systems Constitutional: No Symptoms Reported Eyes: No Symptoms Reported ENTM: Nose Congestion Respiratoy: Productive Cough, Short of Breath and Wheezing Cardiovascular: No Symptoms Reported Gastrointestinal/Abdominal: No Symptoms Reported Genitourinary: No Symptoms Reported Neurological: No Symptoms Reported Musculoskeletal: No Symptoms Reported Integumentary: No Symptoms Reported Hematologic/Lymphatic: No Symptoms Reported Endocrine: No Symptoms Reported Psychiatric: No Symptoms Reported All Other Systems: Reviewed and Negative PE Vital Signs Vitals: Temperature 97.8 F Pulse Rate [Left Brachial] 99 Pulse Rate 87 Respiratory Rate 20 Blood Pressure [Right Arm] 134/75 Blood Pressure [Left Arm] 112/58 Blood Pressure 131/79 O2 Sat by Pulse Oximetry 97 General Limitations: No Limitations General Appearance: Alert and In No Apparent Distress Head Head Exam: Normal Inspection Eyes Eye exam: Normal Appearance, PERRL and EOMI; negative Scleral Icterus and Conjunctival Injection ENT ENT Exam: Normal External Ear Exam External Ear Exam: Normal External Inspection TM/Canal Exam: Bilateral: Bulging Nose Exam: Normal Nose Exam Mouth Exam: Normal Inspection Throat Exam: Tonsillar Erythema; negative Tonsillomegaly and Tonsillar Exudate Neck Neck Exam: Normal Inspection; negative Tenderness, Meningismus and Lymphadenopathy Chest Chest Inspection: Normal Inspection Respiratory Respiratory Exam: Bilateral: Wheezing, Bilateral: Rales and Bilateral: Rhonchi, Right: Rales, Upper: Rales and Lower: Wheezing and Lower: Rhonchi Cardiovascular Cardiovascular Exam: Regular Rate and Normal Rhythm Abdominal Exam Abdominal Exam: Normal Inspection, Normal Bowel Sounds and Soft Extremeties Extremities Exam: Normal Inspection Back Back Exam: Normal Inspection Neurologic Neurological Exam: Alert and Oriented X3; negative Motor Sensory Deficit Psychiatric Psychiatric Exam: Normal Affect and Normal Mood Skin Skin Exam: Warm, Dry, Intact and Normal Color MDM Differential Diagnosis Differential Diagnosis: Otitis media, Streptococcal pharyngitis, Viral pharyngitis, Pneumonia, Sinsusitis and URI COURSE Treatment Treatment: SEE ORDERS. NEB TREATMENT AND IV SOLUMEDROL AND IV ANTIBIOTIC IN ED. Consultation Consultation Comments: DR. RODAS WILL ADMIT PATIENT. Education/Counseling Education/Counseling: Patient Educated On: Diagnosis ROR Labs Reviewed Laboratory Results Reviewed?: Yes Result Diagrams: 02/11/19 04:53 02/11/19 04:53 Laboratory: 02/08/19 11:25 Blood Blood Culture - Preliminary 02/08/19 11:20 Blood Blood Culture - Preliminary 02/08/19 11:15 Sputum - Expectorated Sputum Sputum Culture - Final 02/08/19 11:15 Sputum - Expectorated Sputum - Final WBC 13.5 X10^3/uL (3.6-10.0) H 02/11/19 04:53 RBC 4.43 X10^6/uL (3.5-5.4) 02/11/19 04:53 Hgb 13.7 g/dL (12.0-16.0) 02/11/19 04:53 Hct 39.6 % (36.0-47.0) 02/11/19 04:53 MCV 89.4 fL (80.0-100.0) 02/11/19 04:53 MCH 31.0 pg (27.0-34.0) 02/11/19 04:53 MCHC 34.6 g/dL (33.0-35.0) 02/11/19 04:53 RDW 13.1 % (11.6-16.5) 02/11/19 04:53 Plt Count 187 X10^3/uL (150.0-450.0) 02/11/19 04:53 Plt Count Comment Adequate (ADEQUATE) 02/10/19 04:26 MPV 8.6 fL (7.4-11.0) 02/11/19 04:53 Neut % (Auto) 88.6 % (42.0-75.0) H 02/11/19 04:53 Lymph % (Auto) 7.8 % (21.0-51.0) L 02/11/19 04:53 [place] % (Auto) 3.6 % (0.0-13.0) 02/11/19 04:53 Eos % (Auto) 0.0 % (0.9-2.9) L 02/11/19 04:53 Baso % (Auto) 0 % (0.2-1.0) L 02/11/19 04:53 Neut # (Auto) 11.9 x10^3/uL (2.2-4.8) H 02/11/19 04:53 Lymph # (Auto) 1.1 X10^3/uL (1.3-2.9) L 02/11/19 04:53 [place] # (Auto) 0.5 x10^3/uL (0.3-0.8) 02/11/19 04:53 Eos # (Auto) 0.0 x10^3/uL (0.0-0.2) 02/11/19 04:53 Baso # (Auto) 0.0 X10^3/uL (0.0-0.1) 02/11/19 04:53 Absolute Nucleated RBC 0.0 /100WBC 02/11/19 04:53 Total Counted 100 02/10/19 04:26 Neutrophils % (Manual) 93 % (39-76) H 02/10/19 04:26 Band Neutrophils % 2 % (0-10) 02/08/19 11:25 Lymphocytes % (Manual) 6 % (13-43) L 02/10/19 04:26 Monocytes % (Manual) 1 % (4-9) L 02/10/19 04:26 Eosinophils % (Manual) 29 % (0-6) H 02/08/19 11:25 Plt Morphology Comment Normal (NORMAL) 02/10/19 04:26 RBC Morphology Normal (NORMAL) 02/10/19 04:26 D-Dimer < 100 ng/mL (0-400) 02/08/19 11:25 Sodium 146 mmol/L (136-145) H 02/11/19 04:53 Corrected Sodium 147 mmol/L (136-145) H 02/11/19 04:53 Potassium 3.4 mmol/L (3.5-5.1) L 02/11/19 04:53 Chloride 109 mmol/L (98-107) H 02/11/19 04:53 Carbon Dioxide 24.3 mmol/L (21-32) 02/11/19 04:53 BUN 9 mg/dL (7-18) 02/11/19 04:53 Creatinine 0.54 mg/dL (0.55-1.02) L 02/11/19 04:53 Est GFR (MDRD) Af Amer > 60 (>60) 02/11/19 04:53 Est GFR (MDRD) Non-Af > 60 (>60) 02/11/19 04:53 Glucose 126 mg/dL (65-99) H 02/11/19 04:53 Lactic Acid 0.9 mmol/L (0.4-2.0) 02/08/19 11:25 Calcium 8.7 mg/dL (8.5-10.1) 02/11/19 04:53 Corrected Calcium 9.3 mg/dL (8.5-10.1) 02/11/19 04:53 Magnesium 2.0 mg/dL (1.7-2.9) 02/09/19 04:20 Total Bilirubin 0.40 mg/dL (0.2-1.0) 02/11/19 04:53 AST 12 Units/L (15-37) L 02/11/19 04:53 ALT 18 Units/L (12-78) 02/11/19 04:53 Alkaline Phosphatase 57 Units/L (46-116) 02/11/19 04:53 Creatine Kinase 62 Units/L (26-192) 02/08/19 21:55 CK-MB (CK-2) 1.0 ng/mL (0-4.0) 02/08/19 21:55 CK/CKMB % Calc 1.6 % (<4) 02/08/19 21:55 Troponin I < 0.02 ng/mL (0-1.5) 02/08/19 21:55 Total Protein 6.2 g/dL (6.4-8.2) L 02/11/19 04:53 Albumin 3.2 g/dL (3.4-5.0) L 02/11/19 04:53 Globulin 3.0 g/dL (2.5-4.5) 02/11/19 04:53 Albumin/Globulin Ratio 1.1 Ratio (1.1-2.1) 02/11/19 04:53 Specimen Type Clean catch urine 02/08/19 17:35 Urine Color Yellow (YELLOW) 02/08/19 17:35 Urine Appearance Clear (CLEAR) 02/08/19 17:35 Urine pH 7.0 (5.0 - 8.0) 02/08/19 17:35 Ur Specific [place] 1.005 (1.000-1.030) 02/08/19 17:35 Urine Protein Negative (NEGATIVE) 02/08/19 17:35 Urine Glucose (UA) Negative (NEGATIVE) 02/08/19 17:35 Urine Ketones 1+ (NEGATIVE) 02/08/19 17:35 Urine Occult Blood Negative (NEGATIVE) 02/08/19 17:35 Urine Nitrite Negative (NEGATIVE) 02/08/19 17:35 Urine Bilirubin Negative (NEGATIVE) 02/08/19 17:35 Urine Urobilinogen Normal (NORMAL) 02/08/19 17:35 Ur Leukocyte Esterase Negative (NEGATIVE) 02/08/19 17:35 XRAY XRAY Interpreted by: Radiologist XRAY Findings: REPORT ON RECORD NOTED AND DISCUSS WITH PATIENT. EKG Rate: 92 [place]: Normal Rhythm: NSR Block: None Hypertrophy: LAE ST: Normal Diagnosis Discharge Problem: COPD exacerbation
[2019-02-08] MEDS ORDERED: SOLU-Medrol 125 MG VIAL IVP ONE (11:21)
[2019-02-08] MEDS ORDERED: SOLU-Medrol 125 MG VIAL ONE (11:24)
--- NOTE | 2019-02-08 11:27 | RAD ---
Exam: Chest, single History: 68-year-old female with cough and shortness of breath. Previous history of lung cancer. Comparison: Previous chest radiograph from 05/29/2018. Findings: Heart size and pulmonary vasculature are normal. Hyperinflation consistent with COPD is again noted. Chronic interstitial changes are present at the right base. Radiopaque sutures are again seen in the right upper lobe consistent with previous partial lobectomy. A 1.4 cm nodular density is identified just above the right costophrenic angle. This appears to represent a change when compared to the previous exam. It does not appear to represent a nipple shadow. No significant effusion is seen on either side. Visualized bony thorax is unremarkable. Impression: 1. COPD with chronic interstitial scarring at the right base 2. Postoperative changes related to previous right upper lobectomy for lung cancer are again noted. 3. 1.4 cm nodule is seen just above the right costophrenic angle. This appears to represent a change since the previous exam. Further evaluation with chest CT is warranted. Reported By:
[2019-02-08 11:39] LABS: BASOPHILS # (AUTO) 0.1 X10^3/uL (0.0-0.1); BASOPHILS % (AUTO) 1.2 % (0.2-1.0); EOSINOPHILS # (AUTO) 1.5 x10^3/uL (0.0-0.2); EOSINOPHILS % (AUTO) 20.6 % (0.9-2.9); HEMATOCRIT 48.5 % (36.0-47.0); HEMOGLOBIN 16.9 g/dL (12.0-16.0); LYMPHOCYTES # (AUTO) 1.8 X10^3/uL (1.3-2.9); MEAN CORPUSCULAR HEMOGLOBIN 30.9 pg (27.0-34.0); MEAN CORPUSCULAR HGB CONC 34.8 g/dL (33.0-35.0); MEAN CORPUSCULAR VOLUME 88.8 fL (80.0-100.0); MEAN PLATELET VOLUME 8.1 fL (7.4-11.0); MONOCYTES # (AUTO) 0.6 x10^3/uL (0.3-0.8); MONOCYTES % (AUTO) 8.3 % (0.0-13.0); NEUTROPHILS # (AUTO) 3.1 x10^3/uL (2.2-4.8); NEUTROPHILS % (AUTO) 43.9 % (42.0-75.0); PLATELET COUNT 226 X10^3/uL (150.0-450.0); RED BLOOD COUNT 5.46 X10^6/uL (3.5-5.4); RED CELL DISTRIBUTION WIDTH 12.9 % (11.6-16.5); WHITE BLOOD COUNT 7.1 X10^3/uL (3.6-10.0)
[2019-02-08 11:52] LABS: ALANINE AMINOTRANSFERASE 18 Units/L (12-78); ALBUMIN 3.7 g/dL (3.4-5.0); ALKALINE PHOSPHATASE 80 Units/L (46-116); ASPARTATE AMINO TRANSFERASE 16 Units/L (15-37); BAND NEUTROPHILS % 2 % (0-10); BLOOD UREA NITROGEN 8 mg/dL (7-18); CALCIUM 9.1 mg/dL (8.5-10.1); CARBON DIOXIDE 24.7 mmol/L (21-32); CHLORIDE 106 mmol/L (98-107); CREATININE 0.72 mg/dL (0.55-1.02); SODIUM 142 mmol/L (136-145); TOTAL PROTEIN 7.2 g/dL (6.4-8.2); eGFR NON BLACK RACES > 60 (>60)
[2019-02-08 11:53] LABS: PLATELET MORPHOLOGY COMMENT NORMAL (NORMAL)
[2019-02-08 11:57] LABS: LACTIC ACID 0.9 mmol/L (0.4-2.0)
[2019-02-08] MEDS ORDERED: NS 100 ML IV 100 ML ONE (12:22)
--- NOTE | 2019-02-08 13:26 | CT ---
CT CHEST WITH IV CONTRAST HISTORY: Shortness of breath and cough. History of lung cancer. Comparison: 09/07/2017 Technique: Multiple axial images of the chest were obtained from the thoracic inlet to the upper abdomen after the administration of IV contrast.Dose reduction techniques including Automated Exposure Control (AEC) and adjustment of mA and kV were utlized. Findings: The heart is normal in size. No pericardial effusion. No suspicious mediastinal or axillary lymph nodes. Although not optimized to detect pulmonary embolism, no large central pulmonary emboli are seen. No focal consolidations, pleural effusions or pneumothorax. Status post right upper lobe wedge resection. Airways are patent. Focal ground-glass can be seen in the perihilar region of the left upper lobe on series 5, image 37 which is new from prior. Limited images of the upper abdomen are unremarkable. No aggressive osseous lesions. IMPRESSION: 1. Focal ground-glass in the left upper lobe may represent acute infection in the correct clinical setting. 2. Status post wedge resection of the right upper lobe without definite evidence of recurrent lung cancer. Reported By:
[2019-02-08] MEDS ORDERED: NS 1000 ML 1,000 ML IV SCH (15:00)
[2019-02-08] MEDS: ROCEPHIN VIAL 1 GRAM IVP SCH (15:17)
[2019-02-08] MEDS: NS 1000 ML 1,000 ML IV SCH (15:17)
[2019-02-08] MEDS: ZITHROMAX INJ 500 MG VIAL 500 MG in NS 250 ML IV 250 ML IV SCH (15:17)
[2019-02-08] MEDS: DUONEB 0.5 MG/3 MG NEB SCH ×2 (16:12→20:41)
[2019-02-08 16:25] LABS: CREATINE KINASE 68 Units/L (26-192); CREATINE KINASE MB < 1.0 ng/mL (0-4.0); TROPONIN I < 0.02 ng/mL (0-1.5)
[2019-02-08 16:35] LABS: CKMB % 1.5 % (<4)
[2019-02-08 17:42] LABS: BILIRUBIN,URINE NEGATIVE (NEGATIVE); BLOOD/HEMOGLOBIN,URINE NEGATIVE (NEGATIVE); GLUCOSE, URINE NEGATIVE (NEGATIVE); KETONES,URINE 1+ (NEGATIVE); LEUKOCYTE ESTERASE ,URINE NEGATIVE (NEGATIVE); NITRITES,URINE NEGATIVE (NEGATIVE); PROTEIN,URINE NEGATIVE (NEGATIVE); UROBILINOGEN,URINE NORMAL (NORMAL)
[2019-02-08 17:44] LABS: APPEARANCE,URINE CLEAR (CLEAR); COLOR,URINE YELLOW (YELLOW)
[2019-02-08] MEDS: BROVANA IN SCH (20:29)
[2019-02-08] MEDS: PULMICORT NEB TX 0.5 MG NEB SCH (20:41)
[2019-02-08] MEDS: SOLU-Medrol 40 MG VIAL IVP SCH (21:03)
[2019-02-08 22:25] LABS: CKMB % 1.6 % (<4); CREATINE KINASE 62 Units/L (26-192); TROPONIN I < 0.02 ng/mL (0-1.5)
[2019-02-08] MEDS: ZyrTEC TAB 10 MG PO SCH (23:55)
[2019-02-08] MEDS: SINGULAIR TAB 10 MG PO SCH (23:55)
[2019-02-09] MEDS: DUONEB 0.5 MG/3 MG NEB SCH ×6 (00:21→20:50)
[2019-02-09] MEDS: NS 1000 ML 1,000 ML IV SCH ×2 (03:52→16:56)
[2019-02-09] MEDS: SOLU-Medrol 40 MG VIAL IVP SCH ×3 (05:04→21:50)
[2019-02-09 05:25] LABS: BASOPHILS % (AUTO) 0 % (0.2-1.0); HEMATOCRIT 43.1 % (36.0-47.0); LYMPHOCYTES # (AUTO) 0.9 X10^3/uL (1.3-2.9); LYMPHOCYTES % (AUTO) 9.4 % (21.0-51.0); MEAN CORPUSCULAR HEMOGLOBIN 30.8 pg (27.0-34.0); MEAN CORPUSCULAR HGB CONC 34.7 g/dL (33.0-35.0); MEAN CORPUSCULAR VOLUME 88.7 fL (80.0-100.0); MEAN PLATELET VOLUME 8.4 fL (7.4-11.0); MONOCYTES # (AUTO) 0.2 x10^3/uL (0.3-0.8); MONOCYTES % (AUTO) 1.8 % (0.0-13.0); NEUTROPHILS # (AUTO) 8.2 x10^3/uL (2.2-4.8); NEUTROPHILS % (AUTO) 88.8 % (42.0-75.0); PLATELET COUNT 223 X10^3/uL (150.0-450.0); RED BLOOD COUNT 4.86 X10^6/uL (3.5-5.4); WHITE BLOOD COUNT 9.2 X10^3/uL (3.6-10.0)
[2019-02-09 05:43] LABS: ALANINE AMINOTRANSFERASE 17 Units/L (12-78); ALBUMIN 3.3 g/dL (3.4-5.0); ALKALINE PHOSPHATASE 68 Units/L (46-116); ASPARTATE AMINO TRANSFERASE 13 Units/L (15-37); BLOOD UREA NITROGEN 8 mg/dL (7-18); CARBON DIOXIDE 24.5 mmol/L (21-32); CHLORIDE 105 mmol/L (98-107); COR CA(FOR HYPOALB) 9.6 mg/dL (8.5-10.1); COR NA(FOR HYPERGLY) 142 mmol/L (136-145); CREATININE 0.65 mg/dL (0.55-1.02); SODIUM 140 mmol/L (136-145); TOTAL PROTEIN 6.7 g/dL (6.4-8.2); eGFR NON BLACK RACES > 60 (>60)
[2019-02-09] MEDS: ROCEPHIN VIAL 1 GRAM IVP SCH (08:45)
[2019-02-09] MEDS: ZITHROMAX INJ 500 MG VIAL 500 MG in NS 250 ML IV 250 ML IV SCH (08:48)
[2019-02-09] MEDS: BROVANA IN SCH ×2 (09:44→21:09)
[2019-02-09] MEDS: PULMICORT NEB TX 0.5 MG NEB SCH ×2 (09:45→20:51)
[2019-02-09] MEDS: ZyrTEC TAB 10 MG PO SCH (20:29)
[2019-02-09] MEDS: SINGULAIR TAB 10 MG PO SCH (20:29)
[2019-02-09] MEDS ORDERED: K-RIDER 10 MEQ/NS 100 ML 10 MEQ/100 ML BAG IV PRN (22:54)
[2019-02-09] MEDS ORDERED: POTASSIUM CHL 60 MEQ/NS 0.45% 500 ML IV PRN (22:54)
[2019-02-09] MEDS ORDERED: MICRO K EXTEN CAP 10 MEQ PO PRN (22:54)
[2019-02-09] MEDS ORDERED: KLOR-CON PO PRN (22:54)
[2019-02-09] MEDS ORDERED: POTASSIUM CHL 40 MEQ/NS 0.45% 500 ML IV PRN (22:54)
[2019-02-09] MEDS ORDERED: POTASSIUM CHLORIDE LIQ 20 MEQ UDC PO PRN (22:54)
[2019-02-09] MEDS: K-DUR TAB 20 MEQ PO PRN (23:25)
[2019-02-10] MEDS: DUONEB 0.5 MG/3 MG NEB SCH ×6 (00:20→21:05)
[2019-02-10 05:00] LABS: BASOPHILS % (AUTO) 0.1 % (0.2-1.0); HEMATOCRIT 39.3 % (36.0-47.0); HEMOGLOBIN 13.5 g/dL (12.0-16.0); LYMPHOCYTES # (AUTO) 0.9 X10^3/uL (1.3-2.9); LYMPHOCYTES % (AUTO) 5.7 % (21.0-51.0); MEAN CORPUSCULAR HEMOGLOBIN 30.8 pg (27.0-34.0); MEAN CORPUSCULAR HGB CONC 34.4 g/dL (33.0-35.0); MEAN CORPUSCULAR VOLUME 89.4 fL (80.0-100.0); MEAN PLATELET VOLUME 8.5 fL (7.4-11.0); MONOCYTES # (AUTO) 0.4 x10^3/uL (0.3-0.8); MONOCYTES % (AUTO) 2.8 % (0.0-13.0); NEUTROPHILS # (AUTO) 13.8 x10^3/uL (2.2-4.8); NEUTROPHILS % (AUTO) 91.4 % (42.0-75.0); PLATELET COUNT 198 X10^3/uL (150.0-450.0); RED CELL DISTRIBUTION WIDTH 13.2 % (11.6-16.5); WHITE BLOOD COUNT 15.1 X10^3/uL (3.6-10.0)
[2019-02-10 05:13] LABS: ALANINE AMINOTRANSFERASE 16 Units/L (12-78); ALBUMIN 3.1 g/dL (3.4-5.0); ALKALINE PHOSPHATASE 57 Units/L (46-116); ASPARTATE AMINO TRANSFERASE 10 Units/L (15-37); BLOOD UREA NITROGEN 9 mg/dL (7-18); CALCIUM 8.6 mg/dL (8.5-10.1); CARBON DIOXIDE 23.9 mmol/L (21-32); CHLORIDE 110 mmol/L (98-107); COR CA(FOR HYPOALB) 9.3 mg/dL (8.5-10.1); COR NA(FOR HYPERGLY) 145 mmol/L (136-145); CREATININE 0.63 mg/dL (0.55-1.02); SODIUM 144 mmol/L (136-145); TOTAL PROTEIN 6.1 g/dL (6.4-8.2); eGFR NON BLACK RACES > 60 (>60)
[2019-02-10] MEDS: K-DUR TAB 20 MEQ PO PRN (05:23)
[2019-02-10] MEDS: SOLU-Medrol 40 MG VIAL IVP SCH ×3 (05:23→21:02)
[2019-02-10] MEDS: NS 1000 ML 1,000 ML IV SCH ×3 (05:24→21:02)
[2019-02-10 05:49] LABS: PLATELET MORPHOLOGY COMMENT NORMAL (NORMAL)
[2019-02-10] MEDS: ROCEPHIN VIAL 1 GRAM IVP SCH (08:20)
[2019-02-10] MEDS: ZITHROMAX INJ 500 MG VIAL 500 MG in NS 250 ML IV 250 ML IV SCH (08:21)
[2019-02-10] MEDS: BROVANA IN SCH ×3 (09:12→21:23)
[2019-02-10] MEDS: PULMICORT NEB TX 0.5 MG NEB SCH ×2 (09:24→21:05)
--- NOTE | 2019-02-10 13:26 | RAD ---
Examination: Chest, PA and lateral views History: Lung cancer, COPD Comparison 02/08/2019 Findings: Continued normal heart size with pulmonary hyperaeration and diffuse chronic interstitial thickening. Postsurgical findings right upper lung. No definite mass, nodule, or pleural fluid. Impression: Redemonstration of findings consistent with COPD and previous right pulmonary surgery. Reported By:
[2019-02-10] MEDS: SINGULAIR TAB 10 MG PO SCH (20:10)
[2019-02-10] MEDS: ZyrTEC TAB 10 MG PO SCH (20:10)
[2019-02-11] MEDS: NS 1000 ML 1,000 ML IV SCH (01:00)
[2019-02-11] MEDS: DUONEB 0.5 MG/3 MG NEB SCH ×6 (01:16→20:26)
[2019-02-11] MEDS: SOLU-Medrol 40 MG VIAL IVP SCH (05:23)
[2019-02-11 05:27] LABS: BASOPHILS % (AUTO) 0 % (0.2-1.0); HEMATOCRIT 39.6 % (36.0-47.0); HEMOGLOBIN 13.7 g/dL (12.0-16.0); LYMPHOCYTES # (AUTO) 1.1 X10^3/uL (1.3-2.9); LYMPHOCYTES % (AUTO) 7.8 % (21.0-51.0); MEAN CORPUSCULAR HGB CONC 34.6 g/dL (33.0-35.0); MEAN CORPUSCULAR VOLUME 89.4 fL (80.0-100.0); MEAN PLATELET VOLUME 8.6 fL (7.4-11.0); MONOCYTES # (AUTO) 0.5 x10^3/uL (0.3-0.8); MONOCYTES % (AUTO) 3.6 % (0.0-13.0); NEUTROPHILS # (AUTO) 11.9 x10^3/uL (2.2-4.8); NEUTROPHILS % (AUTO) 88.6 % (42.0-75.0); PLATELET COUNT 187 X10^3/uL (150.0-450.0); RED BLOOD COUNT 4.43 X10^6/uL (3.5-5.4); RED CELL DISTRIBUTION WIDTH 13.1 % (11.6-16.5); WHITE BLOOD COUNT 13.5 X10^3/uL (3.6-10.0)
[2019-02-11 05:32] LABS: ALANINE AMINOTRANSFERASE 18 Units/L (12-78); ALBUMIN 3.2 g/dL (3.4-5.0); ALKALINE PHOSPHATASE 57 Units/L (46-116); ASPARTATE AMINO TRANSFERASE 12 Units/L (15-37); BLOOD UREA NITROGEN 9 mg/dL (7-18); CALCIUM 8.7 mg/dL (8.5-10.1); CARBON DIOXIDE 24.3 mmol/L (21-32); CHLORIDE 109 mmol/L (98-107); COR CA(FOR HYPOALB) 9.3 mg/dL (8.5-10.1); COR NA(FOR HYPERGLY) 147 mmol/L (136-145); CREATININE 0.54 mg/dL (0.55-1.02); SODIUM 146 mmol/L (136-145); TOTAL PROTEIN 6.2 g/dL (6.4-8.2); eGFR NON BLACK RACES > 60 (>60)
[2019-02-11] MEDS: BROVANA IN SCH ×2 (08:46→20:25)
[2019-02-11] MEDS: PULMICORT NEB TX 0.5 MG NEB SCH ×2 (08:46→20:26)
[2019-02-11] MEDS: ROCEPHIN VIAL 1 GRAM IVP SCH (09:25)
[2019-02-11] MEDS: ZITHROMAX INJ 500 MG VIAL 500 MG in NS 250 ML IV 250 ML IV SCH (09:25)
[2019-02-11] MEDS ORDERED: TUSSIONEX PENNKINETIC SUSP PO PRN (09:42)
[2019-02-11] MEDS ORDERED: NS 1/2 1000 ML IV 1,000 ML ONE (11:55)
[2019-02-11] MEDS: ROBITUSSIN DM PO SCH ×4 (11:57→20:32)
[2019-02-11] MEDS: NS 1/2 1000 ML IV 1,000 ML IV SCH ×2 (11:57→11:58)
[2019-02-11] MEDS ORDERED: PROTONIX INJ 40 MG VIAL IVP SCH (18:00)
--- NOTE | 2019-02-11 18:02 | PCM.PROG ---
Progress Note - Progress Note for Day of Date of Exam: 02/11/19 - Subjective Subjective: 68 WF ADMITTED ON 02/08 WITH COPD EXACERBATION AND PNEUMONIA. PT HAS RECEIVED IV SOLU MEDROL AND IV ATBX THERAPY WITH RESP THERAPY. PT CO NOT RESTING WELL. PT STATES SHE IS WAKING UP SOB AND IT SCARES HER. PT STATES HER CHEST IT TIGHT DURING THE NIGHT. K+3.4 THIS AM, NA 146. IV FLUIDS CHANGES TO 1/2 NS AT 50, POTASSIUM REPLACEMENT, STOPPED STEROIDS AND ADDED ANTITUSSIVE MEDICATION. - Past Medical Family Social History Past Med/Fam/Surg Hx: No changes since H&P Allergies: Allergies No Known Drug Allergies Allergy (Verified 02/08/19 10:52) - Review of Systems ROS: No change since H&P - Vital Signs and I&O's Vital Signs: Temperature 97.8 F Pulse Rate [Left Brachial] 99 Pulse Rate 87 Respiratory Rate 20 Blood Pressure [Right Arm] 134/75 Blood Pressure [Left Arm] 112/58 Blood Pressure 131/79 O2 Sat by Pulse Oximetry 97 Intake and Output: Intake & Output 02/09/19 02/10/19 02/11/19 02/12/19 11:59 11:59 11:59 11:59 Intake Total 2330 / 2330 3439 / 3439 5525 / 5525 3965 / 3965 Balance 2330 / 2330 3439 / 3439 5525 / 5525 3965 / 3965 - Physical Exam Oriented: Normal Eyes: Normal Ear: Normal Nose: Normal Throat: Normal Respiratory: Diminished, Wheezes, Rhonchi Cardiovascular: Normal : Normal Auscultation: Bowel Sounds: Normal Palpation: Normal Tenderness: Normal Skin: Normal Musculoskeletal: Normal Psychiatric: Anxiety Affect: Anxious Speech Pattern: Clear, Appropriate - Laboratory and Diagnostics Result Diagrams: 02/11/19 04:53 02/11/19 04:53 Labs: 02/08/19 11:25 Blood Blood Culture - Preliminary 02/08/19 11:20 Blood Blood Culture - Preliminary 02/08/19 11:15 Sputum - Expectorated Sputum Sputum Culture - Final 02/08/19 11:15 Sputum - Expectorated Sputum - Final Laboratory WBC 13.5 X10^3/uL (3.6-10.0) H 02/11/19 04:53 RBC 4.43 X10^6/uL (3.5-5.4) 02/11/19 04:53 Hgb 13.7 g/dL (12.0-16.0) 02/11/19 04:53 Hct 39.6 % (36.0-47.0) 02/11/19 04:53 MCV 89.4 fL (80.0-100.0) 02/11/19 04:53 MCH 31.0 pg (27.0-34.0) 02/11/19 04:53 MCHC 34.6 g/dL (33.0-35.0) 02/11/19 04:53 RDW 13.1 % (11.6-16.5) 02/11/19 04:53 Plt Count 187 X10^3/uL (150.0-450.0) 02/11/19 04:53 Plt Count Comment Adequate (ADEQUATE) 02/10/19 04:26 MPV 8.6 fL (7.4-11.0) 02/11/19 04:53 Neut % (Auto) 88.6 % (42.0-75.0) H 02/11/19 04:53 Lymph % (Auto) 7.8 % (21.0-51.0) L 02/11/19 04:53 [place] % (Auto) 3.6 % (0.0-13.0) 02/11/19 04:53 Eos % (Auto) 0.0 % (0.9-2.9) L 02/11/19 04:53 Baso % (Auto) 0 % (0.2-1.0) L 02/11/19 04:53 Neut # (Auto) 11.9 x10^3/uL (2.2-4.8) H 02/11/19 04:53 Lymph # (Auto) 1.1 X10^3/uL (1.3-2.9) L 02/11/19 04:53 [place] # (Auto) 0.5 x10^3/uL (0.3-0.8) 02/11/19 04:53 Eos # (Auto) 0.0 x10^3/uL (0.0-0.2) 02/11/19 04:53 Baso # (Auto) 0.0 X10^3/uL (0.0-0.1) 02/11/19 04:53 Absolute Nucleated RBC 0.0 /100WBC 02/11/19 04:53 Total Counted 100 02/10/19 04:26 Neutrophils % (Manual) 93 % (39-76) H 02/10/19 04:26 Band Neutrophils % 2 % (0-10) 02/08/19 11:25 Lymphocytes % (Manual) 6 % (13-43) L 02/10/19 04:26 Monocytes % (Manual) 1 % (4-9) L 02/10/19 04:26 Eosinophils % (Manual) 29 % (0-6) H 02/08/19 11:25 Plt Morphology Comment Normal (NORMAL) 02/10/19 04:26 RBC Morphology Normal (NORMAL) 02/10/19 04:26 D-Dimer < 100 ng/mL (0-400) 02/08/19 11:25 Sodium 146 mmol/L (136-145) H 02/11/19 04:53 Corrected Sodium 147 mmol/L (136-145) H 02/11/19 04:53 Potassium 3.4 mmol/L (3.5-5.1) L 02/11/19 04:53 Chloride 109 mmol/L (98-107) H 02/11/19 04:53 Carbon Dioxide 24.3 mmol/L (21-32) 02/11/19 04:53 BUN 9 mg/dL (7-18) 02/11/19 04:53 Creatinine 0.54 mg/dL (0.55-1.02) L 02/11/19 04:53 Est GFR (MDRD) Af Amer > 60 (>60) 02/11/19 04:53 Est GFR (MDRD) Non-Af > 60 (>60) 02/11/19 04:53 Glucose 126 mg/dL (65-99) H 02/11/19 04:53 Lactic Acid 0.9 mmol/L (0.4-2.0) 02/08/19 11:25 Calcium 8.7 mg/dL (8.5-10.1) 02/11/19 04:53 Corrected Calcium 9.3 mg/dL (8.5-10.1) 02/11/19 04:53 Magnesium 2.0 mg/dL (1.7-2.9) 02/09/19 04:20 Total Bilirubin 0.40 mg/dL (0.2-1.0) 02/11/19 04:53 AST 12 Units/L (15-37) L 02/11/19 04:53 ALT 18 Units/L (12-78) 02/11/19 04:53 Alkaline Phosphatase 57 Units/L (46-116) 02/11/19 04:53 Creatine Kinase 62 Units/L (26-192) 02/08/19 21:55 CK-MB (CK-2) 1.0 ng/mL (0-4.0) 02/08/19 21:55 CK/CKMB % Calc 1.6 % (<4) 02/08/19 21:55 Troponin I < 0.02 ng/mL (0-1.5) 02/08/19 21:55 Total Protein 6.2 g/dL (6.4-8.2) L 02/11/19 04:53 Albumin 3.2 g/dL (3.4-5.0) L 02/11/19 04:53 Globulin 3.0 g/dL (2.5-4.5) 02/11/19 04:53 Albumin/Globulin Ratio 1.1 Ratio (1.1-2.1) 02/11/19 04:53 Specimen Type Clean catch urine 02/08/19 17:35 Urine Color Yellow (YELLOW) 02/08/19 17:35 Urine Appearance Clear (CLEAR) 02/08/19 17:35 Urine pH 7.0 (5.0 - 8.0) 02/08/19 17:35 Ur Specific [place] 1.005 (1.000-1.030) 02/08/19 17:35 Urine Protein Negative (NEGATIVE) 02/08/19 17:35 Urine Glucose (UA) Negative (NEGATIVE) 02/08/19 17:35 Urine Ketones 1+ (NEGATIVE) 02/08/19 17:35 Urine Occult Blood Negative (NEGATIVE) 02/08/19 17:35 Urine Nitrite Negative (NEGATIVE) 02/08/19 17:35 Urine Bilirubin Negative (NEGATIVE) 02/08/19 17:35 Urine Urobilinogen Normal (NORMAL) 02/08/19 17:35 Ur Leukocyte Esterase Negative (NEGATIVE) 02/08/19 17:35 - Plan (1) Pneumonia Status: Acute Plan: IV ATBX, RESP THERAPY. SUPPLEMENTAL O2. DAILY LABS, PULMONARY TOILETING. (2) COPD exacerbation Status: Acute
[2019-02-11] MEDS: ZyrTEC TAB 10 MG PO SCH (20:32)
[2019-02-11] MEDS: SINGULAIR TAB 10 MG PO SCH (20:32)
[2019-02-12] MEDS: DUONEB 0.5 MG/3 MG NEB SCH ×3 (01:03→08:15)
[2019-02-12 05:14] LABS: BASOPHILS % (AUTO) 0.1 % (0.2-1.0); EOSINOPHILS # (AUTO) 0.2 x10^3/uL (0.0-0.2); EOSINOPHILS % (AUTO) 1.5 % (0.9-2.9); HEMATOCRIT 39.6 % (36.0-47.0); HEMOGLOBIN 13.7 g/dL (12.0-16.0); LYMPHOCYTES # (AUTO) 2.6 X10^3/uL (1.3-2.9); LYMPHOCYTES % (AUTO) 23.9 % (21.0-51.0); MEAN CORPUSCULAR HEMOGLOBIN 31.1 pg (27.0-34.0); MEAN CORPUSCULAR HGB CONC 34.5 g/dL (33.0-35.0); MEAN CORPUSCULAR VOLUME 90.2 fL (80.0-100.0); MEAN PLATELET VOLUME 8.2 fL (7.4-11.0); MONOCYTES # (AUTO) 0.8 x10^3/uL (0.3-0.8); NEUTROPHILS # (AUTO) 7.2 x10^3/uL (2.2-4.8); NEUTROPHILS % (AUTO) 67.5 % (42.0-75.0); PLATELET COUNT 174 X10^3/uL (150.0-450.0); RED BLOOD COUNT 4.39 X10^6/uL (3.5-5.4); RED CELL DISTRIBUTION WIDTH 13.1 % (11.6-16.5); WHITE BLOOD COUNT 10.7 X10^3/uL (3.6-10.0)
[2019-02-12 05:31] LABS: ALANINE AMINOTRANSFERASE 21 Units/L (12-78); ALKALINE PHOSPHATASE 55 Units/L (46-116); ASPARTATE AMINO TRANSFERASE 11 Units/L (15-37); BLOOD UREA NITROGEN 11 mg/dL (7-18); CALCIUM 8.3 mg/dL (8.5-10.1); CARBON DIOXIDE 28.6 mmol/L (21-32); CHLORIDE 109 mmol/L (98-107); COR CA(FOR HYPOALB) 9.1 mg/dL (8.5-10.1); CREATININE 0.65 mg/dL (0.55-1.02); SODIUM 145 mmol/L (136-145); TOTAL PROTEIN 5.7 g/dL (6.4-8.2); eGFR NON BLACK RACES > 60 (>60)
[2019-02-12] MEDS ORDERED: NS 1/2 1000 ML IV 1,000 ML ONE (06:01)
[2019-02-12] MEDS: NS 1/2 1000 ML IV 1,000 ML IV SCH ×2 (06:02→06:03)
[2019-02-12] MEDS: PULMICORT NEB TX 0.5 MG NEB SCH (08:15)
[2019-02-12] MEDS: BROVANA IN SCH (08:15)
[2019-02-12] MEDS: ROCEPHIN VIAL 1 GRAM IVP SCH (08:48)
[2019-02-12] MEDS: ZITHROMAX INJ 500 MG VIAL 500 MG in NS 250 ML IV 250 ML IV SCH ×2 (08:48→09:00)
[2019-02-12] MEDS: ROBITUSSIN DM PO SCH (08:49)
[2019-02-12] MEDS ORDERED: PROTONIX TAB 40 MG PO SCH (09:00)
[2019-02-12 10:19] VITALS: BP 134/73
== END 2019-02-12 11:00 | disposition home or self-care (01) | DRG 194 ==
LOC: ER 10:51 → MED/SURG 14:09
PROVIDERS: ADMIT Internal Medicine; ATTEND Internal Medicine
DX: R26.89 Other abnormalities of gait and mobility; R06.02 Shortness of breath; R91.1 Solitary pulmonary nodule; J18.8 Other pneumonia, unspecified organism; Z90.2 Acquired absence of lung [part of]; Z85.118 Personal history of other malignant neoplasm of bronchus and lung; J44.1 Chronic obstructive pulmonary disease with (acute) exacerbation; E87.6 Hypokalemia
CPT/HCPCS: 36415; 71010; 71020; 71045; 71046; 71260; 80053; 81003; 82550; 82553; 83605; 83735; 84132; 84484; 85025; 85378; 87040; 87070; 87205; 93005; 94640; 94760; 96365; 96374; 97162; 99231; 99284; A4222; C9113; J0456; J0696; J2920; J2930; J7030; J7050; J7620; J7626